=== PATIENT | male | born 1945 ===

== ENCOUNTER 2016-08-26 23:45 | Emergency (ER) | payer MEDICARE, BC ==
[~2016-08-26 23:45] MED LIST: ASAB PO; FLOMAX4 PO; HYZAAR1 TAB PO; MOBIC7.5 PO; NEUR100 PO; PCET PO; PRILO PO; SUCR PO; TORADOL; ULTRAM50 PO; [UNRECOGNIZED DRUG - REMARK] PO
[2016-08-26 23:57] LABS: BASOPHILS 0.3 %; BASOPHILS ABSOLUTE 0.03 10/3/uL (0.0-0.16); EOSINOPHILS 2.6 %; EOSINOPHILS ABSOLUTE 0.23 10/3/uL (0.0-0.53); ER CBC TAT 0 Hrs 11 Mins; HEMOGLOBIN 13.1 g/dL (13.6-17.8); IMMATURE GRANULOCYTES 0.2 %; IMMATURE GRANULOCYTES ABSOLUTE 0.02 10/3/uL (0.0-0.11); LYMPHOCYTES 24.3 %; LYMPHOCYTES ABSOLUTE 2.16 10/3/uL (0.67-4.30); MEAN CORPUS HGB CONC 33.6 g/dL (32.0-36.0); MEAN CORPUSCULAR HEMOGLOB 30.1 pg (26.0-34.0); MEAN CORPUSCULAR VOLUME 89.7 fL (80-100); MEAN PLATELET VOLUME 10.8 fL (9.2-13.0); MONOCYTES 12.7 %; MONOCYTES ABSOLUTE 1.13 10/3/uL (0.21-1.20); NEUTROPHILS 59.9 %; NEUTROPHILS ABSOLUTE 5.32 10/3/uL (2.02-8.40); PLATELET COUNT 189 10/3/uL (150-400); RBC DISTRIBUTION WIDTH 14.4 % (12.0-16.0); RED CELL COUNT 4.35 10/6/uL (4.7-6.1); WHITE BLOOD CELLS 8.9 10/3/uL (4.5-10.5)
[2016-08-26 23:58] LABS: MANUAL DIFF NO %
[2016-08-27 00:02] LABS: INTERNATIONAL NORMAL RATI 1.1 UNITS (-); PARTIAL THROMBO TIME 30.1 SEC (22.5-37.2); PROTIME (NOT ORD) 14.2 SEC (12.0-14.5)
[2016-08-27 00:05] LABS: BUN (BLOOD UREA NITROGEN) 21 MG/DL (6-23); CALCIUM, SERUM 8.2 MG/DL (8.5-10.4); CHEST PAIN PROFILE TAT 0 Hrs 19 Mins; CHLORIDE, SERUM 108 MMOL/L (96-112); CO2 (CARBON DIOXIDE) 28 MMOL/L (24-34); CREATININE 0.94 MG/DL (0.70-1.30); GFR AFRICAN AMERICAN 95 ML/MIN (>=60); GFR NON AFRICAN AMERICAN 82 ML/MIN (>=60); GLUCOSE, SERUM 104 MG/DL (60-99); SODIUM, SERUM 143 MMOL/L (135-148); TROPONIN I <0.02 NG/ML (<0.05)
[2016-08-27 00:06] LABS: POTASSIUM, SERUM 3.1 MMOL/L (3.5-5.3)
== END 2016-08-27 00:26 | disposition home or self-care (01) ==
LOC: ER 23:45
PROVIDERS: Emergency Medicine
DX: I49.9 Cardiac arrhythmia, unspecified (principal); I10 Essential (primary) hypertension; K21.9 Gastro-esophageal reflux disease without esophagitis; Z88.8 Allergy status to other drugs, medicaments and biological substances; Z79.82 Long term (current) use of aspirin; Z79.899 Other long term (current) drug therapy
CPT/HCPCS: 71010; 80048; 82962; 83735; 84484; 85025; 85610; 85730; 93005; 99284

== ENCOUNTER 2017-02-03 08:32 | Inpatient (IN) | payer MEDICARE, BC ==
[~2017-02-03] VITALS: Ht 178 cm; Wt 83.9 kg
--- NOTE | ~2017-02-03 | CN ---
Consultation Report [address] [place]. [address] NAME: BITA CONNELLY SR : 46 STATUS : ADM Alexia PAT#: [id number] AGE: 71 ADM/REG DATE : 02/03/17 MR#: [id number] REPORT SERV DATE: 02/04/17 DICTATED BY: MEÑO CREWS III DATE: 02/03/17 REPORT STATUS : Draft TRANSCRIBED BY: MODL DATE: 02/03/17 CONSULTATION DATE OF CONSULTATION: 02/03/2017 REASON FOR CONSULT: 1. Abdominal pain with nausea and vomiting. 2. Possible small-bowel obstruction. 3. Recommendation regarding surgical management. HISTORY OF PRESENT ILLNESS: I am asked to see this 71-year-old male, hospitalized for the above reasons. The patient complains a 24-hour history of crampy abdominal pain. This was associated with nausea, vomiting, and profuse diarrhea. These symptoms began yesterday. The patient has no prior history of similar symptoms. His only previous abdominal surgery was laparoscopic cholecystectomy performed about two years ago. PAST HISTORY: 1. Gastroesophageal reflux disease. 2. Hypertension. PAST SURGICAL HISTORY: Includes laparoscopic cholecystectomy. SOCIAL HISTORY: The patient is . He lives locally. FAMILY HISTORY: Unremarkable. ALLERGIES: PHENERGAN AND DILAUDID. CURRENT MEDICATIONS: At home include Prilosec, Neurontin, Flomax, aspirin, Mobic, losartan, Hyzaar, Flonase, and Claritin. REVIEW OF SYSTEMS: Patient's 14-point review of systems is otherwise unremarkable. PHYSICAL EXAMINATION: GENERAL: This is a male, in no acute distress. He is alert and oriented x3. VITAL SIGNS: Blood pressure 95/50, temperature 98, pulse 56. HEENT: Unremarkable. Cranial nerves 2 through 12 are normal. LUNGS: Clear. CARDIAC: Normal. ABDOMEN: Soft, slightly distended, but nontender. EXTREMITIES: Normal. LABORATORY DATA: CT scan of the abdomen and pelvis which I reviewed shows mild dilatation of Consultation Report [address] [place]. [address] NAME: BITA CONNELLY SR : 46 STATUS : ADM Alexia PAT#: [id number] AGE: 71 ADM/REG DATE : 02/03/17 MR#: [id number] REPORT SERV DATE: 09/13/17 DICTATED BY: MEÑO CREWS III DATE: 02/03/17 REPORT STATUS : Draft TRANSCRIBED BY: JONNA DATE: 02/03/17 the distal small bowel in the right lower quadrant, nonspecific, consistent with possible low-grade obstruction versus ileus. Electrolytes are unremarkable. Liver enzymes are normal. White blood cell count 14.9, hematocrit 46. ASSESSMENT: 1. A 71-year-old male with nausea, vomiting, and diarrhea, with symptoms more consistent with gastroenteritis rather than a small-bowel obstruction. 2. Possible partial small-bowel obstruction as evidenced on CT scan, but again the patient's clinical symptoms are not completely consistent with this. 3. Hypertension. PLAN: The patient will be admitted and started on parenteral fluids and bowel rest. I have requested a repeat KUB for tomorrow. We will follow the patient with you. I suspect this will resolve with nonoperative management. This plan has been explained. The patient's questions have been answered. He understands and agrees to this plan. RHJ/JONNA Meño Crews III, M.D. / [id number] CC: Crystal Sarmiento M.D.
--- NOTE | ~2017-02-03 | DS ---
Discharge Summary [facility] [address] [place]. [address] NAME: BITA CONNELLY SR : 46 STATUS : DIS IN PAT#: [id number] AGE: 71 ADM/REG DATE : 02/04/17 MR#: [id number] REPORT SERV DATE: 02/05/17 DICTATED BY: JORGE BOWENS DATE: 02/05/17 REPORT STATUS : Draft TRANSCRIBED BY: MODL DATE: 02/05/17 ADMISSION DATE: 02/04/2017 DISCHARGE DATE: 02/05/2017 CONDITION OF PATIENT: Stable. DISPOSITION: Discharged to home. DIAGNOSES ON DISCHARGE: 1. Partial small bowel obstruction - resolved. Nausea, vomiting, dehydration, and diarrhea, all resolved. 2. Stool studies are negative for parasite screen. Other diagnoses that are chronic and stable at this time include; 1. Hypertension, which is stable. 2. GERD, which is stable. 3. Bilateral knee replacement, stable. 4. History of laparoscopic cholecystectomy. 5. History of extra beats according to the patient and atrial premature complexes according to EKG along with sinus bradycardia for which the patient is being followed by his own plant reliability engineer, which he will see in the next two to three weeks. 6. A very brief run of ventricular tachycardia of less than 10 seconds that was noted on the monitor spontaneously during a bowel movement, which completely resolved. MEDICATIONS UPON DISCHARGE: The patient has been told to hold his blood pressure pill, which he takes at home, a combination of ARB and HCTZ. This is because his creatinine had come back high at 1.4. Even though, it is normal now at 1.2. The patient's blood pressure is doing fine with just the Flomax that he takes. Hence, the rationale for stopping his ARB/HCTZ. This could be restarted by his PCP as an outpatient when he sees his primary care physician within the next one to two weeks. Other medications which will be continued include his regular home medications, Prilosec 20 mg p.o. b.i.d., gabapentin 100 mg p.o. at bedtime, Flomax 0.4 mg p.o. at bedtime, aspirin 81 mg once a day, Mobic 7.5 mg once a day, Flonase nasal spray, and Claritin 10 mg once a day. BRIEF HOSPITAL COURSE: The patient is a pleasant, 71-year-old patient, who was admitted with signs and symptoms as outlined in history and physical exam. Essentially, he came in with abdominal discomfort, nausea, vomiting, diarrhea and dehydration. He was admitted for IV fluids and as his CT scan of the abdomen showed partial small bowel obstruction with dilated loops of small bowel noted in a small segment of the abdomen, he was kept n.p.o. for some time and then only on clear liquids for sometime. He was also started on intravenous antibiotics as initially his white blood cell count was elevated at 14.9. At this time, we were unsure if he had acute enteritis or colitis and hence the rationale for antibiotics. Eventually, he did not show any signs and symptoms of any infection. He was afebrile. His WBC count came down. His procalcitonin level was Discharge Summary [address] [address] NAME: BITA OCNNELLY SR : 46 STATUS : DIS IN PAT#: [id number] AGE: 71 ADM/REG DATE : 02/04/17 MR#: [id number] REPORT SERV DATE: 02/05/17 DICTATED BY: JORGE BOWENS DATE: 02/05/17 REPORT STATUS : Draft TRANSCRIBED BY: MODL DATE: 02/05/17 normal and hence his antibiotics were subsequently discontinued. Dr. Bennett, surgeon was consulted. Dr. Bennett definitely felt that he did not need any surgery at this time. So, it was basically observation and supportive and symptomatic treatment of this patient. His abdominal pain, nausea, vomiting, dehydration, acute kidney injury, and diarrhea all resolved, and finally on the day of discharge when he was ready to be discharged and he was having a bowel movement, there were brief run of ventricular tachycardia of about less than 10 per minute. However, the patient was completely asymptomatic with no chest pain, shortness of breath, or whatsoever. The patient besides this also has a plant reliability engineer whom he follows up with for. According to the patient, his heart sometimes doing extra beats. So, the advice is for the patient to follow up with his plant reliability engineer in the next two to three weeks and his PCP within the next one to two weeks. His most recent labs that I have on this patient include the following. His CBC on 02/04/2017 shows a completely normal CBC with WBC 9, hemoglobin 14.3, hematocrit 43.5, platelet count of 168. His comprehensive metabolic profile shows sodium 140, potassium 3.6, BUN 19, creatinine 1.2 which has come down to normal range after holding his losartan/HCTZ and with IV fluids. His blood cultures have come back negative in two days and his stool culture has also come back negative for any parasites at this time. Hence, he is being discharged home in stable condition with above advice, and I have spent about 35 to 40 minutes in coordinating discharge care of this patient including [id number] encounter and summarizing this discharge. RRA/JONNA Jorge Bowens M.D. / [id number] CC: Crystal Sarmiento M.D.
--- NOTE | ~2017-02-03 | HP ---
History And Physical [facility] [address] [place]. [address] NAME: BITA CONNELLY SR : 46 STATUS : ADM Alexia PAT#: [id number] AGE: 71 ADM/REG DATE : 02/03/17 MR#: [id number] REPORT SERV DATE: 02/03/17 DICTATED BY: JORGE BOWENS DATE: 02/03/17 REPORT STATUS : Draft TRANSCRIBED BY: MODGustavo DATE: 02/03/17 DATE OF ADMISSION: 02/03/2017 REASON FOR ADMISSION: Mr. Connell is a 71-year-old male patient who came in because of nausea, vomiting, and diarrhea for the last 24 hours. The patient states that he was in his usual state of health until yesterday late afternoon. It all began with nausea and then he started throwing up. He may have had about three episodes of vomiting and then he started having abdominal crampy pain in the upper quadrants of the abdomen and then it shifted to the mid abdomen and to the right side of the abdomen and then he started having diarrhea. The patient tried to hydrate himself by drinking fluids, but every time, he drank fluids, he said that he had to go to the bathroom and had diarrhea. Other than the above symptoms and tiredness and dehydration and at least 10 to 15 rounds of diarrhea along with the nausea and vomiting, there are no other complaints. The abdominal pain/discomfort that persisted since yesterday now has also resolved since he got medications for his pain in the ER. The patient denies any fever, headache, shortness of breath, cough, chest pain. The patient denies any blood in stools. He denies any coffee-grounds emesis. He states that something like this has never happened to him before. He denies eating any outside food at any outside restaurant in the last few days. He denies any travel outside of the country. REVIEW OF SYSTEMS: Otherwise is negative. PAST MEDICAL HISTORY: Significant only for hypertension and GERD. PAST SURGICAL HISTORY: Significant for bilateral knee replacement and also laparoscopic cholecystectomy in the year 2014. SOCIAL HISTORY: The patient does not smoke or drink any alcohol. He denies any illegal drug abuse. The patient is . ALLERGIES: THE PATIENT IS ALLERGIC TO DILAUDID AND ALSO ALLERGIC TO PHENERGAN. HOME MEDICATIONS: Include Prilosec 20 mg p.o. b.i.d., gabapentin 100 mg p.o. q.h.s., Flomax 0.4 mg p.o. at bedtime, aspirin 81 mg once a day, Mobic 7.5 mg once a day, losartan and HCT 100/12.5 one tablet once a day, Flonase nasal spray, and Claritin 10 mg once a day. PHYSICAL EXAMINATION: GENERAL: The patient is alert, oriented, and does not seem to be in any distress right now. He is able to give his history himself. VITAL SIGNS: Show a blood pressure of 95/50, temperature afebrile, pulse 56, respirations 14 per minute, O2 saturations 96% on room air. SKIN AND MUCOUS MEMBRANES: Skin appears normal, but mucous membranes appear slightly dry. HEENT: Unremarkable. There is no facial asymmetry. NECK: There is no JVD, thyromegaly, or lymphadenopathy. CARDIOVASCULAR SYSTEM: S1, S2 appreciated. Sinus rhythm. No murmurs, rubs, or gallops noted. History And Physical [address] [address] NAME: BITA CONNELLY : 46 STATUS : ADM Alexia PAT#: [id number] AGE: 71 ADM/REG DATE : 02/03/17 MR#: [id number] REPORT SERV DATE: 02/03/17 DICTATED BY: JORGE BOWENS DATE: 02/03/17 REPORT STATUS : Draft TRANSCRIBED BY: JONNA DATE: 02/03/17 RESPIRATORY SYSTEM: Clear lungs noted. ABDOMEN: Soft. There is mild discomfort or very minimal tenderness noted in the mid abdominal area, more to the right side. Other than that there is no guarding, rigidity, or any other pain anywhere else in the belly area. Bowel sounds are appreciated. No masses noted. No hepatosplenomegaly noted. EXTREMITIES: There is no edema. Pedal pulses are well felt. NEUROLOGIC: Normal. MUSCULOSKELETAL: Status post bilateral knee replacement. PSYCHIATRIC: Normal. LABORATORY DATA: Labs that I have on this patient include a CBC that shows an elevated WBC count of 14.9, otherwise normal labs. CMP shows normal electrolytes, normal BUN and creatinine, and normal lipase and normal LFTs. CT scan of the abdomen and pelvis shows status post cholecystectomy, there is an enlarged prostate and there is also mild dilatation of the distal small bowel loops in the right lower quadrant, which is nonspecific, but does suggest a low-grade partial small bowel obstruction. ASSESSMENT: 1. Dehydration from nausea, vomiting, and diarrhea. 2. Partial small bowel obstruction. 3. CT scan shows no masses. Lipase is normal. 4. Elevated WBC count. PLAN: 1. To admit the patient for observation. Start him on IV fluids. Start him on IV Ancef 1 g every eight hours and keep the patient on clear liquids. 2. We will go ahead and check his stool studies including stool for C. diff, stool culture, stool Hemoccult, and ova and parasites. 3. Family is requesting consulting Dr. Bennett, the surgeon, we will do so. 4. Obviously, we will control his symptoms including nausea and abdominal pain and give him symptomatic and supportive treatment and watch him over the next day or two to see if his partial SBO will resolve. RRA/MODL Jorge Bowens M.D. / [id number] CC: Crystal Sarmiento M.D.
[2017-02-03 09:41] LABS: BASOPHILS 0.1 %; BASOPHILS ABSOLUTE 0.01 10/3/uL (0.0-0.16); EOSINOPHILS 0.6 %; EOSINOPHILS ABSOLUTE 0.09 10/3/uL (0.0-0.53); IMMATURE GRANULOCYTES 0.3 %; IMMATURE GRANULOCYTES ABSOLUTE 0.05 10/3/uL (0.0-0.11); LYMPHOCYTES 8.7 %; LYMPHOCYTES ABSOLUTE 1.29 10/3/uL (0.67-4.30); MEAN CORPUS HGB CONC 34.3 g/dL (32.0-36.0); MEAN CORPUSCULAR HEMOGLOB 31.3 pg (26.0-34.0); MEAN CORPUSCULAR VOLUME 91.1 fL (80-100); MEAN PLATELET VOLUME 11.1 fL (9.2-13.0); MONOCYTES 6.7 %; NEUTROPHILS 83.6 %; NEUTROPHILS ABSOLUTE 12.43 10/3/uL (2.02-8.40); PLATELET COUNT 197 10/3/uL (150-400); RBC DISTRIBUTION WIDTH 13.5 % (12.0-16.0); RED CELL COUNT 5.15 10/6/uL (4.7-6.1)
[2017-02-03 09:43] LABS: ER CBC TAT 0 Hrs 08 Mins; HEMATOCRIT 46.9 % (40.0-51.0); HEMOGLOBIN 16.1 g/dL (13.6-17.8); MANUAL DIFF NO %; WHITE BLOOD CELLS 14.9 10/3/uL (4.5-10.5)
[2017-02-03 09:57] LABS: ALBUMIN 3.6 G/DL (3.5-5.0); ALKALINE PHOSPHATASE 93 U/L (45-117); BUN (BLOOD UREA NITROGEN) 20 MG/DL (6-23); CHLORIDE, SERUM 105 MMOL/L (96-112); CO2 (CARBON DIOXIDE) 28 MMOL/L (24-34); CREATININE 1.12 MG/DL (0.70-1.30); DIRECT BILIRUBIN 0.2 MG/DL (0.0-0.4); GFR AFRICAN AMERICAN 77 ML/MIN (>=60); GFR NON AFRICAN AMERICAN 66 ML/MIN (>=60); GLOBULIN 3.5 G/DL (2.5-4.1); GLUCOSE, SERUM 119 MG/DL (60-99); INDIRECT BILIRUBIN(NOT ORDER) 0.9 MG/DL (0.1-0.9); POTASSIUM, SERUM 3.7 MMOL/L (3.5-5.3); SGOT(AST) 11 U/L (5-40); SGPT(ALT) 18 U/L (5-65); SODIUM, SERUM 139 MMOL/L (135-148); TOTAL BILIRUBIN 1.1 MG/DL (0-1.2); TOTAL PROTEIN 7.1 G/DL (6.0-8.5)
[2017-02-03] MEDS ORDERED: PRILO PO (12:31)
[2017-02-03] MEDS ORDERED: NEUR100 PO (12:31)
[2017-02-03] MEDS ORDERED: FLOMAX4 PO (12:32)
[2017-02-03] MEDS ORDERED: ASAB PO (12:32)
[2017-02-03] MEDS ORDERED: MOBIC7.5 PO (12:33)
[2017-02-03] MEDS ORDERED: HYZAAR1 TAB PO (12:36)
[2017-02-03] MEDS ORDERED: FLONASE NAS (12:36)
[2017-02-03] MEDS ORDERED: CLARIT10 PO (12:37)
[2017-02-04 06:15] LABS: BASOPHILS 0.2 %; BASOPHILS ABSOLUTE 0.02 10/3/uL (0.0-0.16); EOSINOPHILS ABSOLUTE 0.27 10/3/uL (0.0-0.53); HEMATOCRIT 43.5 % (40.0-51.0); HEMOGLOBIN 14.3 g/dL (13.6-17.8); IMMATURE GRANULOCYTES 0.4 %; IMMATURE GRANULOCYTES ABSOLUTE 0.04 10/3/uL (0.0-0.11); LYMPHOCYTES 19.4 %; LYMPHOCYTES ABSOLUTE 1.74 10/3/uL (0.67-4.30); MEAN CORPUS HGB CONC 32.9 g/dL (32.0-36.0); MEAN CORPUSCULAR HEMOGLOB 30.2 pg (26.0-34.0); MEAN PLATELET VOLUME 10.7 fL (9.2-13.0); MONOCYTES 10.3 %; MONOCYTES ABSOLUTE 0.92 10/3/uL (0.21-1.20); NEUTROPHILS 66.7 %; NEUTROPHILS ABSOLUTE 5.97 10/3/uL (2.02-8.40); PLATELET COUNT 168 10/3/uL (150-400); RBC DISTRIBUTION WIDTH 13.8 % (12.0-16.0); RED CELL COUNT 4.73 10/6/uL (4.7-6.1)
[2017-02-04 06:17] LABS: MANUAL DIFF NO %
[2017-02-04 06:30] LABS: A/G RATIO 1.1 (0.7-1.9); ALKALINE PHOSPHATASE 77 U/L (45-117); BUN (BLOOD UREA NITROGEN) 22 MG/DL (6-23); CALCIUM, SERUM 8.3 MG/DL (8.5-10.4); CHLORIDE, SERUM 106 MMOL/L (96-112); CO2 (CARBON DIOXIDE) 27 MMOL/L (24-34); CREATININE 1.49 MG/DL (0.70-1.30); GFR AFRICAN AMERICAN 54 ML/MIN (>=60); GFR NON AFRICAN AMERICAN 47 ML/MIN (>=60); GLOBULIN 2.8 G/DL (2.5-4.1); GLUCOSE, SERUM 106 MG/DL (60-99); POTASSIUM, SERUM 3.5 MMOL/L (3.5-5.3); SGOT(AST) 10 U/L (5-40); SGPT(ALT) 15 U/L (5-65); SODIUM, SERUM 140 MMOL/L (135-148); TOTAL BILIRUBIN 0.9 MG/DL (0-1.2); TOTAL PROTEIN 5.8 G/DL (6.0-8.5)
[2017-02-05 06:50] LABS: BUN (BLOOD UREA NITROGEN) 19 MG/DL (6-23); CALCIUM, SERUM 8.5 MG/DL (8.5-10.4); CHLORIDE, SERUM 109 MMOL/L (96-112); CO2 (CARBON DIOXIDE) 26 MMOL/L (24-34); CREATININE 1.21 MG/DL (0.70-1.30); GFR AFRICAN AMERICAN 70 ML/MIN (>=60); GFR NON AFRICAN AMERICAN 60 ML/MIN (>=60); GLUCOSE, SERUM 90 MG/DL (60-99); POTASSIUM, SERUM 3.6 MMOL/L (3.5-5.3); SODIUM, SERUM 140 MMOL/L (135-148)
== END 2017-02-05 15:23 | disposition home or self-care (01) | DRG 389 ==
LOC: ER 08:32 → 4SO 12:15
PROVIDERS: Emergency Medicine
DX: K56.60 Unspecified intestinal obstruction (principal); I47.2 Ventricular tachycardia; N17.9 Acute kidney failure, unspecified; I10 Essential (primary) hypertension; K21.9 Gastro-esophageal reflux disease without esophagitis; Z90.49 Acquired absence of other specified parts of digestive tract
CPT/HCPCS: 74020; 74022; 74176; 80048; 80053; 82248; 83690; 84145; 85025; 87040; 87045; 87046; 87046-59; 87328; 87329; 87899; 87899-59; 93005; 96374; 96375; 99285; A9270-GY; C9113; J0690; J2405